=== PATIENT | male | born 1965 | race African-American/Black ===

== ENCOUNTER 2016-06-21 04:27 | Emergency (ER) | payer OTHER ==
[~2016-06-21] VITALS: Ht 185.4 cm; Wt 90.7 kg
[~2016-06-21 04:27] MED LIST: COZAAR50 M1 PO; NAPROSYN500 M1 PO
[2016-06-21 04:36] VITALS: BP 169/95
--- NOTE | 2016-06-21 04:39 | ED GENERAL ADULT ---
History of Present Illness General Chief Complaint: General Adult Stated Complaint: PT/CO "NERVE PAIN" NECK/SHOULDER NEEDS PAIN MED Source: patient Exam Limitations: no limitations Vital Signs & Intake/Output Vital Signs & Intake/Output Vital Signs Date Time Temp Pulse Resp B/P Pulse O2 O2 Flow FiO2 Ox Delivery Rate 06/21 0436 97.2 65 18 169/95 96 Room Air Allergies Coded Allergies: No Known Allergies (02/29/16) Reconcile Medications Cyclobenzaprine HCl 10 MG TABLET 1 TAB PO 4 TIMES/DAY PRN MUSCLE SPASM Losartan Potassium (Cozaar) (Unknown Strength) TABLET (Unknown Dose) PO AD BP (Reported) Naproxen (Naprosyn) (Unknown Strength) TABLET (Unknown Dose) PO AD PAIN ( Reported) Oxycodone HCl/Acetaminophen (Percocet 5-325 MG Tablet) 5 MG-325 MG TABLET 1 TAB PO 4XDP PRN PAIN TEN...[id number] Triage Nurses Notes Reviewed? yes Onset: Gradual Duration: day(s): Timing: recent history Injury Environment: home Severity: moderate Modifying Factors: Improves With: rest. Worsens With: movement. Associated Symptoms: muscle spasm HPI: 51 -year-old gentleman presents with chronic left upper back pain for the past 3 days. He states that usually his back pain is well treated with Naprosyn. However, he needed to stop the Naprosyn in preparation for a prostate biopsy next week. He states that since he stopped taking the Naprosyn he feels his left upper back has a muscle spasm. He has taken Tylenol without improvement. He notes no new injury, chest pain, dyspnea, syncopal type symptoms. He is otherwise well. Past History Medical History Any Pertinent Medical History? see below for history Neurological: NONE EENT: NONE Cardiovascular: hypertension Respiratory: NONE Gastrointestinal: NONE Hepatic: NONE Renal: NONE Musculoskeletal: ARTHRITIS CHRONIC NECK PAIN C6/C7 INJURY Psychiatric: ETOH Endocrine: NONE Blood Disorders: NONE Cancer(s): NONE [employer]/Reproductive: NONE Surgical History Surgical History: none Psychosocial History What is your primary language [place]amese Family History Hx Contributory? No Review of Systems Review of Systems Constitutional: Reports: no symptoms. EENTM: Reports: no symptoms. Respiratory: Reports: no symptoms. Cardiovascular: Reports: no symptoms. GI: Reports: no symptoms. Genitourinary: Reports: no symptoms. Musculoskeletal: Reports: no symptoms. Skin: Reports: no symptoms. Neurological/Psychological: Reports: no symptoms. Hematologic/Endocrine: Reports: no symptoms. Immunologic/Allergic: Reports: no symptoms. All Other Systems: Reviewed and Negative Physical Exam Physical Exam General Appearance: well developed/nourished, mild distress Head: atraumatic, normal appearance Eyes: Bilateral: normal appearance. Ears, Nose, Throat: normal pharynx, normal ENT inspection Neck: normal inspection, supple, full range of motion Respiratory: normal breath sounds, chest non-tender, no respiratory distress, quiet respiration, lungs clear Cardiovascular: regular rate/rhythm Gastrointestinal: normal bowel sounds, soft, non-tender, no organomegaly Back: normal inspection, normal range of motion, muscle spasm, no vertebral tenderness, muscle spasm at left latissimus dorsae muscles. Extremities: normal inspection Neurologic/Psych: no motor/sensory deficits, awake, alert, oriented x 3 Skin: intact, normal color, warm/dry Core Measures ACS in differential dx? No CVA/TIA Diagnosis: No Severe Sepsis Present: No Septic Shock Present: No Progress Differential Diagnoses I considered the following diagnoses in my evaluation of the patient: muscle spasm vs other. Plan of Care: pt given percocet and rx for same... safe for discharge. Initial ED EKG: none Departure Departure Disposition: HOME OR SELF CARE Condition: Stable Clinical Impression Primary Impression: Muscle spasm Referrals: UNKNOWN (PCP/Family) Departure Forms: Customer Survey General Discharge Information Prescriptions: Current Visit Scripts Oxycodone HCl/Acetaminophen (Percocet 5-325 MG Tablet) 1 TAB PO 4XDP PRN PAIN #10 TAB TEN...[id number] Cyclobenzaprine HCl 1 TAB PO 4 TIMES/DAY PRN MUSCLE SPASM #30 TAB Ref 1 Critical Care Note Critical Care Note Critical Care Time: non-applicable
[2016-06-21] MEDS ORDERED: PERCOCET 5-3251 EACH PO (05:12)
[2016-06-21] MEDS ORDERED: CYCLOBENZAPRINE10 M1 PO (05:12)
== END 2016-06-21 05:23 ==
LOC: ERH 04:27
DX: M62.838 Other muscle spasm (principal)